=== PATIENT | female | born 1955 | race Hispanic/Latino ===

== ENCOUNTER 2022-12-10 07:24 | Outpatient (CLI) | payer MEDICARE, OTHER ==
[2022-12-10] MEDS ORDERED: Iopamidol 370 76% 100 ML VIAL ONE (12:03)
== END 2022-12-10 07:25 | disposition home or self-care (01) ==
LOC: BICCT 07:24
PROVIDERS: ATTEND Physician Assistant Medical
DX: K58.9 Irritable bowel syndrome, unspecified (principal)
CPT/HCPCS: 74177; 82565